=== PATIENT | male | born 1965 ===

== ENCOUNTER 2018-08-22 13:30 | Outpatient (CLI) | payer OTHER ==
[~2018-08-22] VITALS: Ht 172.7 cm; Wt 79.8 kg
[2018-08-22 14:16] VITALS: BP 142/91
[2018-08-23] MEDS ORDERED: ATORVASTATIN CA20 MG ORAL (14:22)
--- NOTE | 2018-08-23 16:04 | GI Initial Consult Note ---
History of Present Illness General Date patient seen: Aug 23, 2018 Time patient seen: 15:58 Referring physician: HMO Reason for Consultation: Abdominal pain Present Illness HPI This is a 53-year-old male presents today with complaint of abdominal pain, GERD , constipation, abdominal bloating. The patient states that he suffered some regurgitation after p.o. intake. The patient had a H. pylori stool test performed which was negative. He stated he had a colonoscopy approximately 3 years ago which was also negative. The patient does have a history of hemorrhoids and chronic constipation. Denies any unintentional weight loss or changes in dietary habits. No signs of abuse or neglect. Patient is not fall risk. Home Meds Reported Medications Atorvastatin Calcium* (ATORVASTATIN CALCIUM*) 20 Mg Tablet, 20 MG ORAL BEDTIME, TAB 08/23/18 Med list reviewed/reconciled: Yes Allergies: Coded Allergies: No Known Allergies (Unverified , 08/23/18) Patient History History Provided By: Patient, Medical Record PMH Narrative Hyperlipidemia Chronic constipation hemorrhoids Past surgical history Bilateral inguinal inguinal hernia repair Hemorrhoidal surgery approximately 20 years ago Sinus Social History: Reports: smoking - Has quit smoking, alcohol use Review of Systems All Other Systems: negative except mentioned in HPI Physical Exam Vital Signs Date Time Temp Pulse Resp B/P (MAP) Pulse Ox O2 Delivery O2 Flow Rate FiO2 08/22/18 14:16 98.0 90 20 142/91 95 Sp02 EP Interpretation: reviewed, normal General Appearance: well appearing, no apparent distress, alert Head: normocephalic EENT: PERRL/EOMI, normal ENT inspection Neck: supple Respiratory: normal breath sounds, no respiratory distress Cardiovascular: normal rate Gastrointestinal: normal inspection, non tender, soft, normal bowel sounds, non -distended Rectal: deferred Genitourinary: deferred Musculoskeletal: normal inspection, back normal Neurologic: normal inspection, alert, oriented x3, responsive Psychiatric: normal inspection, judgement/insight normal, memory normal Skin: normal inspection, normal color, no rash, warm/dry, palpation normal, well hydrated Lymphatic: normal inspection, no adenopathy GI: Plan Problems: (1) Small intestinal bacterial overgrowth (2) GERD (gastroesophageal reflux disease) (3) Chronic constipation (4) Abdominal bloating (5) Hemorrhoids (6) Hyperlipidemia Plan Rx Xifaxan 550 twice daily times 14 days MiraLAX Return to clinic after above treatment Will follow with additional recommendations if patient does not respond to medical management Seen with Dr. Gibbs. Thank you for this patient referral. The patient was seen and examined at bedside and all new and available data was reviewed in the patients chart. I agree with the above findings, impression and plan. (Patient seen earlier today. Signature stamp does not reflect patient encounter time.). - MD Isabelle TiptonEn[facility] HospitalKalli LOWRY Aug 23, 2018 16:04
== END 2018-08-22 14:00 | disposition home or self-care (01) ==
LOC: PAN 13:30
DX: A04.9 Bacterial intestinal infection, unspecified (principal); K21.9 Gastro-esophageal reflux disease without esophagitis; R14.0 Abdominal distension (gaseous); K59.09 Other constipation; K64.9 Unspecified hemorrhoids; E78.5 Hyperlipidemia, unspecified
CPT/HCPCS: 99202

== ENCOUNTER 2018-09-26 13:01 | Outpatient (CLI) | payer OTHER ==
[~2018-09-26 13:01] MED LIST: ATORVASTATIN CA20 MG ORAL
[2018-09-26 14:00] VITALS: BP 137/93
--- NOTE | 2018-09-26 14:44 | General Progress Note ---
Assessment/Plan Problem List: (1) Hemorrhoids ICD Codes: K64.9 - Unspecified hemorrhoids SNOMED: 31031159 (2) GERD (gastroesophageal reflux disease) ICD Codes: K21.9 - Gastro-esophageal reflux disease without esophagitis SNOMED: 366983779 (3) Chronic constipation ICD Codes: K59.09 - Other constipation SNOMED: 022730823 (4) Small intestinal bacterial overgrowth ICD Codes: K63.89 - Other specified diseases of intestine SNOMED: 588187785 Assessment/Plan 20 % response to Xifaxan add Neomycin for 20 days Subjective ROS Limited/Unobtainable: Yes Allergies: Coded Allergies: No Known Allergies (Unverified , 08/23/18) Objective General Appearance: alert EENT: normal ENT inspection Cardiovascular: normal rate Respiratory/Chest: lungs clear Abdomen: normal bowel sounds, non tender, soft Extremities: non-tender Robinson Gibbs MD Sep 26, 2018 14:44
== END 2018-09-26 13:31 | disposition home or self-care (01) ==
LOC: PAN 13:01
DX: K64.9 Unspecified hemorrhoids (principal); K21.9 Gastro-esophageal reflux disease without esophagitis; K59.09 Other constipation; K63.89 Other specified diseases of intestine
CPT/HCPCS: 99212